=== PATIENT | female | born 1940 | race Native Hawaiian/Other Pacific Islander ===

== ENCOUNTER 2019-11-12 09:32 | Emergency (ER) | payer MEDICARE ==
[~2019-11-12] VITALS: Ht 157.5 cm; Wt 116.1 kg
[2019-11-12] MEDS: ACETAMINOPHEN 500 MG TAB PO ONE (11:41)
[2019-11-12] MEDS ORDERED: SODIUM CHLORIDE 0.9% 1,000 ML IV ONE (16:17)
[2019-11-12] MEDS ORDERED: PIPERACILLIN-TAZOB 3.375GM 100 ML IV ONE (16:30)
[2019-11-12] MEDS ORDERED: metroNIDAZOLE 500MG/100ML 100 ML IV ONE (16:30)
[2019-11-12 16:45] VITALS: BP 162/69
== END 2019-11-12 19:35 | disposition home or self-care (01) ==
LOC: ER 09:43
DX: M48.061 Spinal stenosis, lumbar region without neurogenic claudication (principal); M79.662 Pain in left lower leg; E11.9 Type 2 diabetes mellitus without complications; I10 Essential (primary) hypertension; R41.82 Altered mental status, unspecified
CPT/HCPCS: 70450; 71045; 72131; 74176

== ENCOUNTER 2020-01-12 14:46 | Emergency (ER) | payer MEDICARE ==
[~2020-01-12] VITALS: Ht 157.5 cm; Wt 115.7 kg
[2020-01-12 15:04] VITALS: BP 147/57
[2020-01-12] MEDS ORDERED: ACETAMINOPHEN 325 MG TAB PO ONE (16:30)
== END 2020-01-12 16:47 | disposition home or self-care (01) ==
LOC: ER 14:51
DX: J20.9 Acute bronchitis, unspecified (principal); E11.9 Type 2 diabetes mellitus without complications; I10 Essential (primary) hypertension
CPT/HCPCS: 71046; 81002; 82962